=== PATIENT | male | born 1945 | race Hispanic/Latino ===

== ENCOUNTER 2017-12-21 09:40 | Day surgery (SDC) | payer MEDICARE ==
[2017-12-19 12:43] VITALS: BMI 28.2
[2017-12-21] MEDS ORDERED: Propofol 10 mg/ml Inj (20 ML) ONE (12:11)
[2017-12-21] MEDS ORDERED: Sodium Chloride 0.9% 1,000 ML IV SCH (13:00)
[2017-12-21 13:29] VITALS: RESP 16
[2017-12-21 13:30] VITALS: O2SAT 97
[2017-12-21 14:11] VITALS: PULSE 64; TEMP 97.8
[2017-12-21 14:20] VITALS: BP 130/67
== END 2017-12-21 14:30 | disposition home or self-care (01) ==
LOC: ENDO 09:40
PROVIDERS: ATTEND Internal Medicine Gastroenterology
DX: K57.30 Diverticulosis of large intestine without perforation or abscess without bleeding (principal); K64.8 Other hemorrhoids; R19.5 Other fecal abnormalities
CPT/HCPCS: 45378; J2001; J2704; J7030; J7040